=== PATIENT | female | born 1980 | race Two or more races ===

== ENCOUNTER 2020-03-09 21:07 | Emergency (ER) | payer OTHER ==
[~2020-03-09] VITALS: Ht 160 cm; Wt 103.0 kg
[2020-03-09] MEDS ORDERED: ONDANSETRON 2MG/ML, 2ML IVPush ONE (21:30)
[2020-03-09] MEDS ORDERED: MORPHINE SULFATE 4 MG/ML, 1ML IVPush PRN (21:30)
[2020-03-09] MEDS ORDERED: MORPHINE SULFATE 4 MG/ML, 1ML ONE (21:37)
[2020-03-09] MEDS ORDERED: ONDANSETRON 2MG/ML, 2ML ONE (21:37)
[2020-03-09 21:40] LABS: MICROSCOPIC INDICATED
[2020-03-09 21:42] LABS: BASOPHILS % (AUTO) 0 % (0-1); EOSINOPHILS % (AUTO) 1 % (1-7); LYMPHOCYTES % (AUTO) 42 % (22-44); MEAN CORPUSCULAR HEMOGLOBIN 31.4 pg (27.0-34.8); MEAN CORPUSCULAR HGB CONC 34.3 g/dL (32.4-35.8); MEAN PLATELET VOLUME 9.7 fL (7.4-10.4); MONOCYTES % (AUTO) 6 % (2-9); NEUTROPHILS % (AUTO) 50 % (42-75); PLATELET COUNT 201 x10^3/uL (130-400); RED BLOOD COUNT 4.58 x10^6/uL (3.82-5.3)
[2020-03-09 21:45] LABS: MD NO
[2020-03-09 21:53] LABS: ALBUMIN 3.8 g/dL (3.4-5.0); ANION GAP 6 mmol/L (5-15); CALCIUM 8.9 mg/dL (8.5-10.1); CHLORIDE 109 mmol/L (98-107)
[2020-03-09 21:57] LABS: CREATININE 0.95 mg/dL (0.55-1.02)
[2020-03-09 21:58] LABS: ALANINE AMINOTRANSFERASE 29 U/L (12-78); ALKALINE PHOSPHATASE 85 U/L (45-117); BILIRUBIN,TOTAL 0.5 mg/dL (0.2-1.0); TOTAL PROTEIN 7.6 g/dL (6.4-8.2)
--- NOTE | 2020-03-09 21:59 | NUR ---
BIBA, CC OF ABD PAIN IN LOWER ABD, WORSE ON LEFT SIDE THAT STARTED LAST NIGHT. PAIN WENT AWAY THIS AM AND THEN RETURNED THIS EVENING WHEN PT WAS EATING [place]. 09/14 PAIN. AT BEDSIDE. IV STARTED BY EMS
[2020-03-09] MEDS ORDERED: OMNIPAQUE 350 MG/ML, 100ML BOTTLE ONE (22:00)
--- NOTE | 2020-03-09 22:03 | NUR ---
PT REPORTS 0/10 PAIN AFTER MORPHINE. AT BEDSIDE
--- NOTE | 2020-03-09 22:19 | NUR ---
PT TO CT
--- NOTE | 2020-03-09 22:25 | NUR ---
pt back from [place]
--- NOTE | 2020-03-09 23:14 | NUR ---
pt up to restroom with steady gait. feels nauesous, wants to have bm but unable to
[2020-03-09 23:57] VITALS: BP 116/71
== END 2020-03-09 23:59 | disposition home or self-care (01) ==
LOC: ED 23:41
DX: A09 Infectious gastroenteritis and colitis, unspecified (principal); R10.32 Left lower quadrant pain; K59.00 Constipation, unspecified; M54.5 Low back pain
CPT/HCPCS: 36415; 74177; 80053; 81001; 81025; 83690; 85025; 87086; 96374; 96375; 99285; J2270; J2405; Q9967